=== PATIENT | female | born 1950 | race Hispanic/Latino ===

== ENCOUNTER 2020-11-17 07:05 | Inpatient (IN) | payer MEDICARE ==
[2020-11-14 11:51] LABS: BASOPHILS % (AUTO) 1.1 % (0.0-5.0); EOSINOPHILS % (AUTO) 1.6 % (0.0-8.0); HEMATOCRIT 41.4 % (36-48); LYMPHOCYTES % (AUTO) 26.7 % (21.0-51.0); MEAN CORPUSCULAR HEMOGLOBIN 29.4 pg (27.0-33.0); MEAN CORPUSCULAR HGB CONC 33.6 g/dL (32.0-36.0); MEAN CORPUSCULAR VOLUME 87.7 fL (79-99); MONOCYTES % (AUTO) 5.2 % (3.0-13.0); NEUTROPHILS % (AUTO) 65.1 % (40.0-77.0); PLATELET COUNT (AUTO) 265 K/uL (130-400); RED BLOOD CELL COUNT(AUTO) 4.72 MIL/uL (4.00-5.50); RED CELL DISTRIBUTION WIDTH 12.7 % (11.0-15.5); WHITE BLOOD COUNT (AUTO) 9.8 K/uL (4.8-10.8)
[2020-11-14 11:55] VITALS: BP 140/78
[2020-11-14 12:01] LABS: ALBUMIN 3.8 g/dL (3.5-5.0); BILIRUBIN,TOTAL 0.3 mg/dL (0.2-1.0); PARTIAL THROMBOPLASTIN TIME 22.3 SEC (26.3-35.5); POTASSIUM 4.2 mmol/L (3.5-5.1); PROTHROMBIN TIME 10.4 SEC (9.6-11.6); TOTAL PROTEIN, SERUM 8.7 g/dL (6.0-8.3)
[2020-11-14 12:25] LABS: HEMOGLOBIN A1C 7.6 % (4.0-6.0)
[~2020-11-17] VITALS: Ht 162.6 cm; Wt 56.2 kg
[2020-11-17] VITALS (10 sets, daily range): BP systolic 78–151; BP diastolic 42–76
[~2020-11-17 07:05] MED LIST: METF-446 PO
[2020-11-17] MEDS ORDERED: 0.9%NACL 1000ML 1,000 ML IV ONE (07:45)
[2020-11-17] MEDS ORDERED: EZET10TA48 PO (08:28)
[2020-11-17] MEDS ORDERED: ALBUTEROL IH (08:28)
[2020-11-17] MEDS ORDERED: LISI5TAB21 PO (08:28)
[2020-11-17] MEDS ORDERED: CEFAZOLIN SODIUM 1 GM VIAL ONE ×2 (08:32→16:26)
[2020-11-17] MEDS ORDERED: LIDOCAINE HCL 1% 20 ML VIAL ONE (13:40)
[2020-11-17] MEDS ORDERED: PHENYLEPHRINE HCL 10 MG/ML 1ML VIAL IV ONE ×2 (14:49→23:26)
[2020-11-17] MEDS ORDERED: HEPARIN 10,000 UNIT/10ML (1,000 UNIT/ML) VIAL ONE (14:50)
[2020-11-17] MEDS ORDERED: NOREPINEPHRINE BITARTRATE 1 MG/1 ML ML IV ONE (14:53)
[2020-11-17] MEDS ORDERED: NITROGLYCERIN 50MG/D5W 250ML 1 BOT ONE (15:01)
[2020-11-17] MEDS ORDERED: MIDAZOLAM HCL 1 MG/ML 2ML VIAL ONE (15:51)
[2020-11-17] MEDS ORDERED: LIDOCAINE PF 100MG/5ML (2%) SYRINGE 5ML ONE (15:57)
[2020-11-17] MEDS ORDERED: PROPOFOL 10 MG/ML 20ML VIAL IV ONE (15:57)
[2020-11-17] MEDS ORDERED: SUCCINYLCHOLINE CHLORIDE 20 MG/ML 10 ML VIAL ONE (15:57)
[2020-11-17] MEDS ORDERED: ROCURONIUM 10MG/1ML SYR 10 MG/ML ML ONE ×2 (15:57→16:59)
[2020-11-17] MEDS ORDERED: DEXAMETHASONE SOD PHOSPHATE 10MG/ML 1ML VIAL ONE (16:09)
[2020-11-17] MEDS ORDERED: FENTANYL CITRATE PF 50 MCG/1 ML 2ML VIAL ONE (16:10)
[2020-11-17] MEDS ORDERED: DiphenhydrAMINE HCL 50 MG/ML VIAL ONE (16:30)
[2020-11-17] MEDS ORDERED: ESMOLOL HCL 10 MG/ML 10 ML VIAL ONE (17:19)
[2020-11-17] MEDS ORDERED: ONDANSETRON 4MG INJ ONE (17:46)
[2020-11-17] MEDS ORDERED: GLYCOPYRROLATE 1 MG/5 ML SYRINGE ONE (17:47)
[2020-11-17] MEDS ORDERED: NEOSTIGMINE 5MG/5ML SYR IV ONE (17:47)
[2020-11-17] MEDS ORDERED: FLUMAZENIL 0.1MG/1ML 5ML VIAL IV ONE (18:27)
[2020-11-17] MEDS ORDERED: SUGAMMADEX SODIUM 200 MG/2 ML VIAL IV ONE (18:28)
[2020-11-17] MEDS ORDERED: TRAMADOL HCL 50 MG TABLET PO PRN ×2 (19:15)
[2020-11-17] MEDS ORDERED: ACETAMINOPHEN 325 MG TAB PO PRN ×2 (19:15)
[2020-11-17] MEDS ORDERED: ALBUTEROL INHALER 90MCG/INH IH PRN (19:15)
[2020-11-17] MEDS: KETOROLAC 15MG/ML VIAL (15MG/ML) IV SCH (20:00)
[2020-11-17] MEDS: LISINOPRIL 5 MG TABLET PO SCH (21:00)
[2020-11-17] MEDS: EZETIMIBE 10 MG TAB PO SCH (23:07)
[2020-11-17] MEDS: METFORMIN HCL 500 MG TABLET PO SCH (23:07)
[2020-11-17] MEDS ORDERED: PHENYLEPHRINE HCL 10 MG in 0.9% NACL 250ML 250 ML IV PRN (23:30)
[2020-11-18] VITALS (18 sets, daily range): BP systolic 73–137; BP diastolic 35–71
[2020-11-18] MEDS: KETOROLAC 15MG/ML VIAL (15MG/ML) IV SCH ×4 (02:00→20:49)
[2020-11-18] MEDS ORDERED: 0.9%NACL 100ML 100 ML IV ONE (02:59)
[2020-11-18] MEDS: CEFAZOLIN SODIUM 1 GM VIAL IVP SCH ×3 (03:03→20:48)
[2020-11-18 05:22] LABS: HEMATOCRIT 33.8 % (36-48); MEAN CORPUSCULAR HEMOGLOBIN 29.9 pg (27.0-33.0); MEAN CORPUSCULAR HGB CONC 34.6 g/dL (32.0-36.0); MEAN CORPUSCULAR VOLUME 86.4 fL (79-99); RED BLOOD CELL COUNT(AUTO) 3.91 MIL/uL (4.00-5.50); RED CELL DISTRIBUTION WIDTH 12.8 % (11.0-15.5); WHITE BLOOD COUNT (AUTO) 15.5 K/uL (4.8-10.8)
[2020-11-18 05:31] LABS: CREATININE 0.9 mg/dL (0.5-1.5); POTASSIUM 4.2 mmol/L (3.5-5.1)
[2020-11-18] MEDS: METFORMIN HCL 500 MG TABLET PO SCH ×2 (08:36→16:56)
[2020-11-18] MEDS: CLOPIDOGREL 75MG TAB PO SCH (08:36)
[2020-11-18] MEDS: ASPIRIN 81 MG EC TAB PO SCH (08:37)
[2020-11-18] MEDS ORDERED: CEFAZOLIN SODIUM 1 GM VIAL ONE (20:33)
[2020-11-18] MEDS: LISINOPRIL 5 MG TABLET PO SCH (20:47)
[2020-11-18] MEDS: EZETIMIBE 10 MG TAB PO SCH (20:47)
[2020-11-19] MEDS: KETOROLAC 15MG/ML VIAL (15MG/ML) IV SCH (02:27)
[2020-11-19 03:45] VITALS: BP 85/59
[2020-11-19] MEDS: METFORMIN HCL 500 MG TABLET PO SCH (08:29)
[2020-11-19] MEDS: CLOPIDOGREL 75MG TAB PO SCH (08:29)
[2020-11-19] MEDS: ASPIRIN 81 MG EC TAB PO SCH (08:29)
[2020-11-19 08:51] VITALS: BP 103/51
[2020-11-19 13:37] VITALS: BP 110/53
== END 2020-11-19 15:33 | disposition home or self-care (01) | DRG 39 ==
LOC: OBSVTOIN 07:05 → DAHIP 07:05 → INTOOBSV 07:05 → EDSTATUS 09:44 → 2CH 18:45 → 4AH 11-18 10:30
PROVIDERS: ADMIT Thoracic Surgery (Cardiothoracic Vascular Surgery); ATTEND Thoracic Surgery (Cardiothoracic Vascular Surgery)
PROC: 03CM0ZZ Extirpation of Matter from Right External Carotid Artery, Open Approach (ICD-10-PCS; 2020-11-17)
PROC: 03CH0ZZ Extirpation of Matter from Right Common Carotid Artery, Open Approach (ICD-10-PCS; principal; 2020-11-17 15:45)
DX: I65.23 Occlusion and stenosis of bilateral carotid arteries (principal); E78.00 Pure hypercholesterolemia, unspecified; E87.70 Fluid overload, unspecified; Z79.899 Other long term (current) drug therapy; Z20.822 Contact with and (suspected) exposure to COVID-19
CPT/HCPCS: 36415; 71046; 80048; 80053; 82948; 83036; 85025; 85027; 85610; 85730; 86850; 86900; 86901; 88304; 88311; 93005; G0378; J0330; J0690; J1100; J1200; J1644; J1885; J2001; J2250; J2370; J2405; J2704; J2710; J3010; J3490; J7030; J7040; U0003